=== PATIENT | female | born 1995 | race Caucasian/White ===

== ENCOUNTER 2022-07-01 10:31 | Outpatient (CLI) | payer OTHER ==
--- NOTE | 2022-07-01 17:27 | MRI Report ---
PROCEDURE: LUMBAR SPINE WO INDICATIONS: LOW BACK PAIN TECHNIQUE: Noncontrast sagittal T1 spin echo and T2 fast echo, sagittal STIR, axial T1 and T2 fast spin echo thr ough the lumbar spine. In cases with scoliosis, additional coronal T2 fast spin echo may be performe d. COMPARISON: None. FINDINGS: Image quality: Excellent. Alignment and Curvature: There is normal bony alignment. Bone Marrow: Marrow is of normal overall signal. No acute vertebral body compression fractures. Spinal Cord: Conus medullaris terminates at the L1 level. Visualized cord demonstrates normal signa l and size. Paraspinous Soft Tissues: No paravertebral masses. T12-L1: Normal in appearance. L1-L2: Normal in appearance. L2-L3: Normal in appearance. L3-L4: The disc height and disc signal are well preserved. Mild to moderate disc bulge is seen, whi ch is eccentric to the left. Mild facet hypertrophy is seen. There is minimal to mild right-sided a nd no significant left-sided neuroforaminal narrowing. No significant central canal narrowing is seen . L4-L5: The disc height is relatively well preserved. Moderate disc bulge is seen, with a central di sc protrusion. Mild facet hypertrophy is seen. Moderate bilateral neuroforaminal narrowing can be s een, left worse than right. Moderate central canal narrowing is seen. L5-S1: The disc height and disc signal are well preserved. Mild disc bulge is seen. Mild facet hypertrophy is seen. There is mild left-sided and no right-sided neuroforaminal narrowing. No signif icant central canal narrowing is seen. IMPRESSION: Focal L4-L5 degenerative change is seen, with a central disc protrusion. Milder degenerative changes are seen elsewhere. Reviewed by: Mario Alberto Lucero MD on 07/01/2022 4:05 PM [facility] Approved by: Mario Alberto Lucero MD on 07/01/2022 4:05 PM [facility] Station ID: [id number]
== END 2022-07-01 10:32 | disposition home or self-care (01) ==
LOC: DI 10:31
PROVIDERS: ATTEND Physician Assistant
DX: M51.26 Other intervertebral disc displacement, lumbar region (principal); M47.816 Spondylosis without myelopathy or radiculopathy, lumbar region